=== PATIENT | female | born 1945 | race Caucasian/White ===

== ENCOUNTER 2016-06-07 11:57 | Inpatient (IN) | payer MEDICARE, OTHER ==
[2016-05-26 11:53] LABS: BASOPHILS 1.5 %; BASOPHILS ABSOLUTE 0.09 10/3/uL (0.0-0.16); EOSINOPHILS 3.1 %; EOSINOPHILS ABSOLUTE 0.19 10/3/uL (0.0-0.53); HEMATOCRIT 39.6 % (36.0-48.0); IMMATURE GRANULOCYTES 0.2 %; IMMATURE GRANULOCYTES ABSOLUTE 0.01 10/3/uL (0.0-0.11); LYMPHOCYTES ABSOLUTE 1.58 10/3/uL (0.67-4.30); MANUAL DIFF NO %; MEAN CORPUS HGB CONC 32.8 g/dL (32.0-36.0); MEAN CORPUSCULAR HEMOGLOB 30.2 pg (26.0-34.0); MEAN CORPUSCULAR VOLUME 92.1 fL (80-100); MEAN PLATELET VOLUME 10.1 fL (9.2-13.0); MONOCYTES 12.2 %; MONOCYTES ABSOLUTE 0.74 10/3/uL (0.21-1.20); NEUTROPHILS ABSOLUTE 3.46 10/3/uL (2.02-8.40); PLATELET COUNT 240 10/3/uL (150-400); RBC DISTRIBUTION WIDTH 14.4 % (12.0-16.0); WHITE BLOOD CELLS 6.1 10/3/uL (4.5-10.5)
[2016-05-26 11:59] LABS: PROTIME (NOT ORD) 13.4 SEC (12.0-14.5)
[2016-05-26 12:00] LABS: PARTIAL THROMBO TIME 36.8 SEC (22.5-37.2)
[2016-05-26 12:04] LABS: BUN (BLOOD UREA NITROGEN) 20 MG/DL (6-23); CALCIUM, SERUM 8.8 MG/DL (8.5-10.4); CHLORIDE, SERUM 106 MMOL/L (96-112); CO2 (CARBON DIOXIDE) 33 MMOL/L (24-34); CREATININE 0.84 MG/DL (0.55-1.02); GFR AFRICAN AMERICAN 82 ML/MIN (>=60); GFR NON AFRICAN AMERICAN 70 ML/MIN (>=60); GLUCOSE, SERUM 77 MG/DL (60-99); POTASSIUM, SERUM 3.7 MMOL/L (3.5-5.3); SODIUM, SERUM 142 MMOL/L (135-148)
[2016-05-26 13:51] LABS: ASCORBIC ACID (UR NOT ORDER) NEG (NEG); BILIRUBIN, URINE NEGATIVE (NEG); KETONE, URINE NEGATIVE (NEG); LEUKOCYTE ESTERASE(NOT OR NEG (NEG); WBC (NOT ORDERED) (RFLEX) < 1 (0-5)
--- NOTE | ~2016-06-07 | DS ---
Discharge Summary [facility] [address] [place]. [address] NAME: FARA PIZARRO : 45 STATUS : DIS IN PAT#: [id number] AGE: 70 ADM/REG DATE : 06/07/16 MR#: [id number] REPORT SERV DATE: 06/17/16 DICTATED BY: SURESH BEY DATE: 06/16/16 REPORT STATUS : Draft TRANSCRIBED BY: SCOOTER DATE: 06/16/16 Data Collection from hospitalization DISCHARGE DIAGNOSES: 1. Right knee arthritis with valgus. 2. Hypertension. 3. Hypothyroidism. 4. Migraines. 5. Lupus. CONSULTATIONS: None. PROCEDURES PERFORMED: Right total knee arthroplasty with Vann and Nephew Oxinium due to the patient's nickel allergy on 06/07/2016. PATHOLOGY: Bone and soft tissue, right knee joint arthroplasty - degenerative joint disease with eburnation. MEDICATIONS: Caltrate plus D 400 mg daily, Zyrtec 10 mg every evening, vitamin D3 2000 units daily, Plaquenil 200 mg twice a day, Atrovent two sprays nasally twice a day, Synthroid 125 mcg every morning, Cozaar 50 mg every morning, magnesium oxide 500 mg daily, probiotic one tablet daily, multivitamins one tablet daily, Zofran 4 mg every six hours as needed, Roxicodone 5 mg every four hours as needed, Ultram 50 mg every six hours as needed, Systane eyedrops as instructed, and Coumadin 2.5 mg every evening. CONDITION AT DISCHARGE: Stable. DISPOSITION: The patient was discharged home on a regular diet with activities as instructed. She would follow up with Bryce Mac on 06/22/[address] Suresh Bey on 07/20/2016. Follow up in [facility] [address] for physical therapy three times a week for four to six weeks beginning 06/14/2016 and at the [facility] once a week for four weeks beginning 06/14/2016. HOSPITAL COURSE: This is a 70-year-old female who had complained of right knee pain. She has right knee arthritis with valgus. Treatment options were discussed and it was elected to proceed with surgical intervention. She was admitted to the hospital at this time for further evaluation and treatment. Upon admission, she was taken to the operating room where she underwent the above-mentioned procedure. She tolerated this well, and there were no complications. On postop day #1, she was evaluated by Occupational Therapy. INR level was 1.2. She had good pain control. She was doing well. On postop day #2, she continued to progress slowly. She did complain of some pain, nausea, and dizziness when she was up. She had not done much with Physical Therapy. WAYLON/SCD hose were in place. Discharge planning was performed. On 06/10/2016, she was doing very well and wanted to go home. Discharge instructions were given. Due to her improved and stable condition, she was discharged home with the above-stated instructions. Information collected by: Vickie Dutta Discharge Summary [address] [address] NAME: FARA PIZARRO Jordan : 45 STATUS : DIS IN [facility]#: [id number] AGE: 70 ADM/REG DATE : 06/07/16 MR#: [id number] REPORT SERV DATE: 06/17/16 DICTATED BY: SURESH BEY DATE: 06/16/16 REPORT STATUS : Draft TRANSCRIBED BY: SCOOTER DATE: 06/16/16 I submit the above information as my discharge summary. AJY/SCOOTER Suresh Bey M.D. / [id number] CC: Hannah Deng M.D.
--- NOTE | ~2016-06-07 | OP ---
Record Of Operation [facility] [address] [place]. [address] NAME: FARA PIZARRO : 45 STATUS : ADM IN PAT#: [id number] AGE: 70 ADM/REG DATE : 06/07/16 MR#: [id number] REPORT SERV DATE: 06/08/16 DICTATED BY: SURESH BEY DATE: 06/07/16 REPORT STATUS : Draft TRANSCRIBED BY: MODRosemary DATE: 06/07/16 DATE OF PROCEDURE: 06/07/2016 PREOPERATIVE DIAGNOSIS: Right knee arthritis with valgus. POSTOPERATIVE DIAGNOSIS: Right knee arthritis with valgus. PROCEDURE PERFORMED: Right total knee arthroplasty with Vann and Nephew Oxinium due to the patient's nickel allergy. SURGEON: Suresh Bey M.D. IRRADIATED FUEL HANDLER: Rick Castillo. ANESTHESIA: General with adductor block and local infusion. PROCEDURE IN DETAIL: The patient is clearly identified and after obtaining informed consent is brought to the operating room at [facility] where anesthesia is induced uneventfully with excellent anesthetic effect. Subsequently, the affected extremity is prepped and draped in the usual manner and after an appropriate time-out procedure is performed, via an anterior approach, the skin is divided, fascial planes are elevated, paramedial approach to the knee is made. The structures themselves are elevated, excised, and debrided were appropriate, whereupon the patella is carefully everted, calipered, and planed and with the size and type being reproduced with the appropriate-size patella, trialing is performed successfully. At this point, the patella is then carefully subluxed laterally, the knee is flexed, osteophytes around the distal femur are removed, followed by the ACL being divided. The femoral canal is entered and vented, at which point with the intramedullary guide being utilized, the distal femoral cut is made. At this point, the tibia is carefully subluxed anteriorly. The surrounding soft tissues to the tibia are protected with Hohmann retractors, at which point the extramedullary guide is utilized to perform the proximal tibial cut and after cleansing these tissues, the spacer block is utilized in extension to confirm excellent extension, stability, and alignment. The guiding pins are then all carefully removed and the knee is then flexed. The femur is sized, whereupon the anterior, posterior, chamfer, and box cuts are made appropriately. The proximal tibia then is assessed. Osteophytes and surrounding soft tissues are removed and debrided were appropriate. Posterior osteophytes are removed as well. The menisci are excised and thus concluding trialings performed successfully. The proximal tibia then is carefully prepared utilizing proper cement technique. The permanent implants have been carefully placed into position uneventfully where upon copious irrigations performed, the permanent tibial implants applied and thus concluded. The joint was then copiously irrigated, at which point it is closed carefully in layers including Vicryl and kristopher for the skin, at which point Aquacel sterile dressing is applied. The patient is allowed to awaken and is transferred to the bed and subsequently to the recovery room in stable condition having tolerated the procedure well. ESTIMATED BLOOD LOSS: 50 mL. Record Of Operation [address] [address] NAME: FARA PIZARRO : 45 STATUS : ADM IN [facility]#: [id number] AGE: 70 ADM/REG DATE : 06/07/16 MR#: [id number] REPORT SERV DATE: 06/08/16 DICTATED BY: SURESH BEY DATE: 06/07/16 REPORT STATUS : Draft TRANSCRIBED BY: SCOOTER DATE: 06/07/16 FLUIDS: 1000 mL. TOURNIQUET TIME: 44 minutes. PATHOLOGY: Sent specimen. MICROBIOLOGY: None. COMPLICATIONS: None. SPONGE AND NEEDLE COUNTS: Reportedly correct. ANTIBIOTICS: Administered appropriately preoperatively and ordered to be discontinued within 23 hours. IMPLANTS: Vann and Nephew JOURNEY with Oxinium; femur 4, right; tibia 3, right; patella 32; polyethylene 05/14/09. RAIN/SCOOTER Suresh Bey M.D. / [id number] CC: Suresh Bey M.D.
[~2016-06-07 11:57] MED LIST: ATRONASAL6 NAS; CALTRA600D PO; CELEBREX2 PO; COZ50 PO; FLURBIPROFEN100 MG PO; GLUCCHONDR PO; MAGOX4 PO; MULTIPLE VIT PO; PLAQ200B PO; PROBIOTIC PO; SYN112 PO; SYSTANE EYE DROPS IO; VITAMIN D31000 UNIT PO; ZYRTEC ALLGY10 MG PO
[2016-06-08 05:04] LABS: HEMOGLOBIN 11.1 g/dL (12.0-16.0)
[2016-06-08 05:14] LABS: INTERNATIONAL NORMAL RATI 1.2 UNITS (-); PROTIME (NOT ORD) 14.7 SEC (12.0-14.5)
[2016-06-08 05:17] LABS: CALCIUM, SERUM 8.1 MG/DL (8.5-10.4); CHLORIDE, SERUM 105 MMOL/L (96-112); CREATININE 0.81 MG/DL (0.55-1.02); GFR AFRICAN AMERICAN 85 ML/MIN (>=60); GFR NON AFRICAN AMERICAN 74 ML/MIN (>=60); SODIUM, SERUM 138 MMOL/L (135-148)
[2016-06-08 05:18] LABS: BUN (BLOOD UREA NITROGEN) 15 MG/DL (6-23); CO2 (CARBON DIOXIDE) 28 MMOL/L (24-34); GLUCOSE, SERUM 112 MG/DL (60-99); POTASSIUM, SERUM 5.2 MMOL/L (3.5-5.3)
[2016-06-09 05:01] LABS: INTERNATIONAL NORMAL RATI 1.7 UNITS (-)
[2016-06-09 05:02] LABS: PROTIME (NOT ORD) 19.5 SEC (12.0-14.5)
[2016-06-09 05:05] LABS: HEMATOCRIT 29.4 % (36.0-48.0)
[2016-06-10 05:28] LABS: BASOPHILS 0.4 %; BASOPHILS ABSOLUTE 0.03 10/3/uL (0.0-0.16); EOSINOPHILS 3.3 %; EOSINOPHILS ABSOLUTE 0.26 10/3/uL (0.0-0.53); HEMATOCRIT 27.7 % (36.0-48.0); HEMOGLOBIN 9.4 g/dL (12.0-16.0); IMMATURE GRANULOCYTES 0.3 %; IMMATURE GRANULOCYTES ABSOLUTE 0.02 10/3/uL (0.0-0.11); LYMPHOCYTES 18.3 %; LYMPHOCYTES ABSOLUTE 1.46 10/3/uL (0.67-4.30); MEAN CORPUS HGB CONC 33.9 g/dL (32.0-36.0); MEAN CORPUSCULAR HEMOGLOB 31.1 pg (26.0-34.0); MEAN CORPUSCULAR VOLUME 91.7 fL (80-100); MEAN PLATELET VOLUME 10.1 fL (9.2-13.0); MONOCYTES 17.6 %; MONOCYTES ABSOLUTE 1.41 10/3/uL (0.21-1.20); NEUTROPHILS 60.1 %; NEUTROPHILS ABSOLUTE 4.82 10/3/uL (2.02-8.40); RBC DISTRIBUTION WIDTH 14.3 % (12.0-16.0)
[2016-06-10 05:29] LABS: MANUAL DIFF NO %; PLATELET COUNT 158 10/3/uL (150-400); RED CELL COUNT 3.02 10/6/uL (4.0-5.6)
[2016-06-10 05:31] LABS: INTERNATIONAL NORMAL RATI 1.9 UNITS (-); PROTIME (NOT ORD) 21.6 SEC (12.0-14.5)
[2016-06-10 05:42] LABS: BUN (BLOOD UREA NITROGEN) 9 MG/DL (6-23); CALCIUM, SERUM 8.2 MG/DL (8.5-10.4); CHLORIDE, SERUM 103 MMOL/L (96-112); CO2 (CARBON DIOXIDE) 28 MMOL/L (24-34); CREATININE 0.62 MG/DL (0.55-1.02); GFR AFRICAN AMERICAN 106 ML/MIN (>=60); GFR NON AFRICAN AMERICAN 91 ML/MIN (>=60); GLUCOSE, SERUM 113 MG/DL (60-99); POTASSIUM, SERUM 3.8 MMOL/L (3.5-5.3); SODIUM, SERUM 137 MMOL/L (135-148)
[2016-06-10] MEDS ORDERED: ZOFRAN4 PO (11:30)
[2016-06-10] MEDS ORDERED: C5 PO (11:31)
[2016-06-10] MEDS ORDERED: ULTRAM50 PO (11:32)
[2016-06-10] MEDS ORDERED: OXYCOD PO (11:32)
== END 2016-06-10 12:58 | disposition home or self-care (01) | DRG 470 ==
LOC: SDC/OF 11:57 → 3SO 19:16
PROVIDERS: Orthopaedic Surgery
PROC: 0SRC0J9 Replacement of Right Knee Joint with Synthetic Substitute, Cemented, Open Approach (ICD-10-PCS; principal; 2016-06-07 14:00)
DX: M17.11 Unilateral primary osteoarthritis, right knee (principal); I10 Essential (primary) hypertension; E03.9 Hypothyroidism, unspecified
CPT/HCPCS: 36415; 71020; 80048; 81001; 85014; 85018; 85025; 85610; 85730; 86850; 86900; 86901; 87641; 88305; 88311; 93005; 97110-GP; 97116-GP; 97161-GP; 97165-GO; 97530-GP; A9270-GY; C1713; C1776; J0690; J1885; J2250; J2274; J2405; J2550; J2795; J3010